=== PATIENT | female | born 1975 | race Hispanic/Latino ===

== ENCOUNTER → 2018-02-25 | Day surgery (SDC) | payer OTHER ==
[~2018-02-25] MED LIST: ACETAMINOPHEN 1000 MG/100 ML IV ONE; AZURETTE 28 DA1 EACH PO; BUPIVACAINE HCL 0.5% INJ 30 ML VIAL INJ ONE; CEFAZOLIN SOD 1 GM/D5W 50ML 50 ML IV ONE; DEXAMETHASONE SOD PHOS INJ 4 MG/ML VIAL ONE; FENTANYL CITRATE/PF 100MCG/2 ML INJ ONE; KETOROLAC TROMETHAMINE 30 MG/ML VIAL ONE; LEVOTHYROXINE75 MCG PO; LIDOCAINE HCL 2% LOCAL INJ 5 ML SDV VIAL INJ ONE; MIDAZOLAM HCL 2 MG/2 ML VIAL ONE; MORPHINE SULFATE INJ 4 MG/ML INJ ONE; ONDANSETRON HCL INJ 2 MG/ML VIAL ONE; PROPOFOL IV EMULSION 10 MG/ML 20 ML VIAL ONE; SEVOFLURANE INHAL SOLN 250 ML PEN BTL ONE
[2018-02-25 08:45] VITALS: BP 117/65
--- NOTE | 2018-02-25 09:28 | Operative Report ---
DATE OF PROCEDURE: February 25, 2018 SURGEON: Edy ATKINS DPM WELDING MACHINE OPERATOR: TAYLOR WEBER DPM PREOPERATIVE DIAGNOSES 1. Neuroma, 2nd interspace, left. 2. Neuroma, 3rd interspace, left. 3. Hammertoe, 2nd digit, left. POSTOPERATIVE DIAGNOSES 1. Neuroma, 2nd interspace, left. 2. Neuroma, 3rd interspace, left. 3. Hammertoe, 2nd digit, left. OPERATIVE PROCEDURES 1. Excision of neuroma, 2nd interspace, left. 2. Excision of neuroma, 3rd interspace, left. 3. Arthroplasty, 2nd digit, left. DETAILS OF PROCEDURE: The patient was placed on the OR table in the supine position. The left lower extremity was prepped and draped in the usual manner. A general anesthetic was administered and hemostasis accomplished using a pneumatic cuff set at 350 mmHg at thigh level. Procedure #1: Excision of neuroma, 2nd interspace, left. An incision approximately 3 cm in length was made in the interspace between the 2nd and 3rd toe. The incision was deepened. Blood vessels were either ligated or retracted. The hypertrophied nerve was identified and isolated with both distal branches. It was then resected in total. The wound was then flushed with sterile saline solution. Subcutaneous tissue closed with 3-0 Vicryl and the skin with 4-0 nylon. Procedure #2: Excision of neuroma, 3rd interspace, left foot. An incision approximately 3 cm in length was made in the interspace between the 3rd and 4th toe. The incision was deepened. Blood vessels were either ligated or retracted. The hypertrophied nerve was identified and isolated with both distal branches. It was then resected in total. The wound was then flushed with sterile saline solution. Subcutaneous tissue closed with 3-0 Vicryl and the skin with 4-0 nylon. Procedure #3: Arthroplasty, 2nd digit, left foot. Two semielliptical incisions were made on the dorsal aspect of the proximal interphalangeal joint. The enclosed tissue was removed. This exposed the capsule at the proximal interphalangeal joint. The capsule was then opened from medial to lateral, and the collateral ligaments were cut. The exposed articular cartilage on the head of the proximal phalanx was removed with a power saw. Also, the articular cartilage on the base of the middle phalanx was removed with a power saw. The wound was then flushed with sterile saline solution. A size 0.045 K-wire was then driven from proximal to distal through the middle and distal phalanx. It was then retrograded back through the proximal phalanx and across the metatarsophalangeal joint into the 2nd metatarsal. The K-wire was then bent back over the distal aspect of the toe and cut to a length of 1 cm. A pin protector was applied. At this time, the extensor tendon was reapproximated with 3-0 Vicryl. Also, going down in the same incision made for the 2nd interspace neuroma, a retention-type suture was put on the lateral aspect of the capsule at the 2nd MPJ to help hold it in proper alignment. Following that suture, then both the incision for the hammertoe and the incision for the 2nd neuroma were closed with 3-0 Vicryl. Following the procedure, 9 mL of 0.5 Marcaine and 1 mL of Decadron were injected. A sterile compression dressing was then applied. At this time, the pneumatic cuff was released and reflex hyperemia was observed to all digits. The patient tolerated the procedure and the anesthesia well and left the OR to recovery in good condition with vital signs stable. Job#: [id number] KUNAL LAST
== END | disposition home or self-care (01) ==
LOC: OR 05:16
PROVIDERS: ATTEND Podiatrist Foot & Ankle Surgery
DX: G57.62 Lesion of plantar nerve, left lower limb (principal); M20.42 Other hammer toe(s) (acquired), left foot; E03.9 Hypothyroidism, unspecified; K21.9 Gastro-esophageal reflux disease without esophagitis; K44.9 Diaphragmatic hernia without obstruction or gangrene
CPT/HCPCS: 81025; C1713; J0690; J1100; J1885; J2001; J2250; J2270; J2405